=== PATIENT | male | born 1955 | race Two or more races ===

== ENCOUNTER 2024-04-24 10:37 | Emergency (ER) | payer MEDICARE, MEDICAID, SELFPAY ==
--- NOTE | 2024-04-24 10:53 | XR_ITS ---
Examination: PA lateral chest 2 views Technique: Upright PA lateral chest 2 views Exam date and time: April 24, 2024 1113 hrs. Indications: Coughing beginning one month ago. Findings: Mild prominence left ventricle No pneumonia or pulmonary edema Prominent osteopenia Impression: No pneumonia or pulmonary edema
--- NOTE | 2024-04-24 10:53 | PD.EDURI ---
Upper Respiratory Inf. RME/HPI General Chief Complaint: Skin/Abscess/Foreign Body Stated Complaint: Rash, SOB at night Time Seen by Provider: 04/24/24 10:55 Source: patient Arrival date/time: 04/24/24 10:37 68-year-old male with a history of hypertension presents to the emergency room with a chief complaint of difficulty breathing, coughing x 1 month. Patient states he recently arrived from [place] 3 days ago. Mode of arrival: ambulatory Limitations: no limitations Related Data Home Medications ?Medication ?Instructions ?Recorded ?Confirmed amlodipine 10 mg tablet 10 mg PO QDAY 07/03/21 07/04/21 lisinopril 20 mg tablet 20 mg PO QDAY 07/03/21 07/04/21 loratadine 10 mg tablet 10 mg PO QDAY 07/03/21 07/03/21 montelukast 10 mg tablet 10 mg PO QDAY 07/03/21 07/03/21 Previous Rx's ?Medication ?Instructions ?Recorded albuterol sulfate 2.5 mg/3 mL 2.5 mg (3 mL) inhalation Q4H PRN 06/11/20 (0.083 %) solution for nebulization shortness of breath or wheezing #90 mL albuterol sulfate 90 mcg/actuation 2 puff inhalation QID PRN 04/14/21 aerosol inhaler (ProAir HFA) shortness of breath or wheezing #8.5 grams prednisone 50 mg tablet 50 mg PO QDAY #5 tabs 03/09/22 ibuprofen 600 mg tablet 600 mg PO Q8H PRN pain #30 tabs 07/22/22 acetaminophen 325 mg capsule 650 mg (2 x 325 mg) PO QID PRN 04/24/24 fever or pain 7 days #30 caps albuterol sulfate 90 mcg/actuation 2 inh inhalation Q6H PRN shortness 04/24/24 breath activated powder inhaler of breath or wheezing #1 ea benzonatate 100 mg capsule 100 mg PO BID PRN cough #14 caps 04/24/24 Allergies Allergy/AdvReac Type Severity Reaction Status Date / Time No Known Allergies Allergy Verified 04/24/24 10:43 Review of Systems Review of Systems Systems Reviewed: All systems reviewed, normal except as documented Constitutional Constitutional: Reports system reviewed and no additional complaints, except as documented, Denies fatigue, Denies fever(s), Denies headache(s) and Denies weakness Eyes Eyes: Reports system reviewed and no additional complaints, except as documented, Denies blurry vision and Denies change in vision ENT Ears, Nose, Mouth, and Throat: Reports system reviewed and no additional complaints, except as documented, Denies otalgia, Denies headache(s), Denies nasal congestion, Denies throat swelling and Denies vertigo Cardiovascular Cardiovascular: Reports system reviewed and no additional complaints, except as documented, Denies chest pain, Reports dyspnea and Denies dyspnea on exertion Respiratory Respiratory: Reports chest congestion, Reports cough, Reports dyspnea, Denies dyspnea on exertion and Reports wheezing Gastrointestinal Gastrointestinal: Reports system reviewed and no additional complaints, except as documented, Denies abdominal pain, Denies cramping, Denies nausea and Denies vomiting Genitourinary Genitourinary: Reports system reviewed and no additional complaints, except as documented, Denies dysuria and Denies hematuria Musculoskeletal Musculoskeletal: Reports system reviewed and no additional complaints, except as documented and Denies back pain Integumentary/Breasts Skin/Breast: Reports system reviewed and no additional complaints, except as documented and Denies wounds Neurologic Neurologic: Reports system reviewed and no additional complaints, except as documented, Denies confusion, Denies headache(s), Denies lack of coordination, Denies vertigo and Denies weakness Psychiatric Psychiatric: Reports system reviewed and no additional complaints, except as documented, Denies anxiety, Denies confusion, Denies depression, Denies paranoia, Denies suicidal ideation and Denies tactile hallucinations Endocrine Endocrine: Reports system reviewed and no additional complaints, except as documented and Denies fatigue Hematologic/Lymphatic Hematologic/Lymphatic: Reports system reviewed and no additional complaints, except as documented and Denies lymphadenopathy Allergic/Immunologic Allergic/Immunologic: Reports system reviewed and no additional complaints, except as documented, Denies throat swelling, Denies urticaria and Reports wheezing Past Medical History Past Medical History NEUROLOGIC: Negative Neurological Disorders or Seizures CARDIAC: Positive Cardiac Disorders, Hypercholesterolemia and Hypertension; Negative Congestive Heart Failure RESPIRATORY: Positive Asthma; Negative Chronic Obstructive Pulmonary Disease (COPD) GASTROINTESTINAL: Negative Gastrointestinal Disorders or Hepatitis GENITOURINARY: Positive Genitourinary Disorders (Umbilical hernia); Negative Renal Disease MUSCULOSKELETAL: Negative Musculoskeletal Disorders ENDOCRINE: Negative Endocrine Disorders, Diabetes Mellitus Type 1 or Diabetes Mellitus Type 2 (Pre Diabetic not taking medicaion) HEMATOLOGIC: Negative Blood Disorders OTHER HISTORY: Negative Hospitalization, Shingles, Falls, Blood Transfusions, Anesthesia Reactions, Chemotherapy, Radiation Therapy, MRSA or Cancer Surgical History SURGICAL: Negative Cardiac Surgery, Endocrine Surgery or Abdominal Surgery Social History SMOKING STATUS: Former smoker SUBSTANCE USE: does not use ED Exam General Limitations: Present no limitations General appearance: Present alert and in no apparent distress Head Head exam: Present atraumatic Eye Eye exam: Present normal appearance, PERRL and EOMI ENT ENT exam: Present normal exam, normal oropharynx and mucous membranes moist Neck Neck exam: Present normal inspection, full ROM and trachea midline Chest Chest inspection: Present normal inspection and symmetric chest wall rise Respiratory Respiratory exam: Present normal lung sounds bilaterally and wheezes; Absent respiratory distress, stridor, accessory muscle use or prolonged expiratory phase Expanded Respiratory Exam Location: Left: wheezes, Right: wheezes and Upper: wheezes Cardiovascular Cardiovascular exam: Present regular rate, normal rhythm and normal heart sounds Abdominal Exam Abdominal exam: Present soft and normal bowel sounds Extremities Exam Extremities exam: Present normal inspection and full ROM Back Exam Back exam: Present normal inspection and full ROM Neurological Exam Neurological exam: Present alert, oriented X3 and CN II-XII intact Psychiatric Psychiatric exam: Present normal affect and normal mood Skin Skin exam: Present warm, dry, intact and normal color Course Quality Measures none Orders Category Date Time Status Bedside COVID-19 Antigen Test NOW Care 04/24/24 10:53 Active Bedside Influenza A&B Antigen Test NOW Care 04/24/24 10:53 Completed XR chest 2V Stat Exams 04/24/24 10:53 Completed Albuterol/Ipratr Rt Claudia [Duoneb Rt Claudia] Med 04/24/24 10:53 Discontinued 3 ml INH X1 ONE Dexamethasone Inj [Decadron Inj] Med 04/24/24 10:53 Discontinued 10 mg PO X1 ONE DiphenhydrAMINE [Benadryl] Med 04/24/24 10:53 Discontinued 25 mg PO X1 ONE Vital Signs Vital signs: Vital Signs Temperature 98.5 F 04/24/24 11:13 Pulse Rate 80 04/24/24 11:13 Respiratory Rate 17 04/24/24 11:13 Blood Pressure 120/76 04/24/24 11:13 Pulse Oximetry (%) 95 04/24/24 11:13 Oxygen Delivery Method Room Air 04/24/24 11:13 O2 saturation is within normal limits Upper Respiratory Infection MDM Narrative MDM Narrative:: 68-year-old male with a history of hypertension presents to the emergency room with a chief complaint of difficulty breathing, coughing x 1 month. Patient states he recently arrived from [place] 3 days ago. Patient is hemodynamically stable and in no apparent distress. Patient is not tachypneic, tachycardic, patient is afebrile and O2 saturation is 96% on room air Physical examination shows bilateral upper lobe wheezing. A DuoNeb breathing treatment and steroids were given to the patient the patient was reevaluated in 1 hour with significant improvement to his symptoms. Patient tested positive for influenza A and B Patient was discharged and educated to follow-up with his primary care provider and return to the emergency room for any evidence of worsening signs or symptoms Patient data External records reviewed:: [facility] previous records Clinical information provided by:: patient Social determinants that could affect healthcare access:: none Patient has the following chronic illnesses:: Hypertension How is presenting disease/condition affected by chronic disease/condition?: uneffected by Evaluation data The following diagnostics were reviewed and interpreted by me:: lab results and radiology exam(s) Lab and/or radiology exams considered but not ordered:: Labs and radiology exams considered and ordered Interpretation Summary: Chest x-ray-no pneumonic infiltrates Medications / Prescriptions Medications or Prescriptions considered but not ordered:: Medication given Medication administrations:: Medication Administration History Discontinued Medications Albuterol/Ipratropium (Albuterol/Ipratropium (Duoneb) Rt Claudia 3 Ml Nebu) 3 ml INH X1 ONE Stop: 04/24/24 10:54 Last Admin: 04/24/24 11:25 Dose: 3 ml Documented By: BJ Dexamethasone Sodium Phosphate (Dexamethasone Sod Phos Inj 10 Mg/Ml Vial) 10 mg PO X1 ONE Stop: 04/24/24 10:54 Last Admin: 04/24/24 11:05 Dose: 10 mg Documented By: BD Comments: GIVEN PO Diphenhydramine HCl (Diphenhydramine 25 Mg Capsule) 25 mg PO X1 ONE Stop: 04/24/24 10:54 Last Admin: 04/24/24 11:05 Dose: 25 mg Documented By: BD Medication given Consultations Consultation(s) initiated? (list below): No Diagnosis Upper Respiratory Differential Diagnosis: upper respiratory infection, viral infection, bronchitis, influenza and other (Community-acquired pneumonia) Most likely diagnosis given after review of the tests above:: Influenza A and B Admission Indicated Admission indicated?: not indicated Admission Request Was there a request for admission?: No Disposition Plan Disposition Plan: Discharge Discharge Attestation Discharge Attestation: The patient and all family members were given an opportunity to ask questions and understood the discharge instructions. Discharge instructions specifically effects, indications for sooner follow up or return to the emergency department, and the expected course of current diagnosis. Patient condition: Stable Discharge Plan Plan Patient Disposition: HOME (Self Care) Disposition Comment: Stable Prescriptions/Referrals Prescriptions/Med Rec: New acetaminophen 325 mg capsule 650 mg PO QID PRN (Reason: fever or pain) 7 Days Qty: 30 0RF albuterol sulfate 90 mcg/actuation aerosol powdr breath activated 2 inh inhalation Q6H PRN (Reason: shortness of breath or wheezing) Qty: 1 0RF benzonatate 100 mg capsule 100 mg PO BID PRN (Reason: cough) Qty: 14 0RF No Action albuterol sulfate 2.5 mg /3 mL (0.083 %) solution for nebulization 2.5 mg inhalation Q4H PRN (Reason: shortness of breath or wheezing) Qty: 90 0RF albuterol sulfate [ProAir HFA] 90 mcg/actuation HFA aerosol inhaler 2 puff inhalation QID PRN (Reason: shortness of breath or wheezing) Qty: 8.5 0RF lisinopril 20 mg Tablet 20 mg PO QDAY amlodipine 10 mg Tablet 10 mg PO QDAY montelukast 10 mg Tablet 10 mg PO QDAY loratadine 10 mg Tablet 10 mg PO QDAY prednisone 50 mg tablet 50 mg PO QDAY Qty: 5 0RF ibuprofen 600 mg tablet 600 mg PO Q8H PRN (Reason: pain) Qty: 30 0RF Referrals: No Primary/Family,Physician [Primary Care Provider] - In 1 week Problem List Clinical Impression: Influenza A, Influenza B Patient/Caregiver Discharge Instructions Education Materials: ED Influenza (Adult) Additional Instructions: Cristin un seguimiento con gilmore proveedor de atenci?n primaria en las pr?ximas 24 a 48 horas. Galdino positivo por gripe. El tratamiento para esto es el manejo de los s?ntomas. Contin?e tomando Tylenol e ibuprofeno para controlar la fiebre. Aumente gilmore ingesta de l?quidos orales. Si hay evidencia de signos o s?ntomas que empeoran, regrese a la noé de emergencias de inmediato. Print Language: Syriac Stand Alone Forms: Asiya Award Info., Patient Portal Info Letter PA/ENVIRONMENTAL DESIGNER Supervising Physician PA/ENVIRONMENTAL DESIGNER Supervising Physician: Dr. Naik
[2024-04-24] MEDS: DiphenhydrAMINE 25 MG CAPSULE PO (11:05)
[2024-04-24] MEDS: DEXAMETHASONE SOD PHOS INJ 10 MG/ML VIAL PO (11:05)
[2024-04-24 11:13] VITALS: BP 120/76; PULSE 80; RESP 17; TEMP 36.9; O2SAT 95; BMI 31.7
[2024-04-24] MEDS: ALBUTEROL/IPRATROPIUM (Duoneb) RT SOL 3 ML NEBU INH (11:25)
[2024-04-24 11:26] VITALS: PULSE 76; RESP 20; O2SAT 96
== END 2024-04-24 12:03 | disposition home or self-care (01) ==
PROVIDERS: Emergency Provider Emergency Medicine
DX: J10.1 Influenza due to other identified influenza virus with other respiratory manifestations (principal); I10 Essential (primary) hypertension; Z87.891 Personal history of nicotine dependence
CPT/HCPCS: 71046; 87400; 87811; 94640; 99283; A9270; J1100

== ENCOUNTER 2024-06-20 14:36 | Emergency (ER) | payer MEDICARE, MEDICAID, SELFPAY ==
[2024-06-20 14:52] VITALS: BP 108/68; PULSE 92; RESP 18; TEMP 37.4; O2SAT 90; BMI 31.3
--- NOTE | 2024-06-20 15:03 | XR_ITS ---
Examination: PA lateral chest 2 views TECHNIQUE: Upright PA lateral chest 2 views Examination time: June 20, 2024, 1629 hours Comparison April 24, 2024 INDICATIONS: Chest pain shortness of breath beginning 2 days ago. FINDINGS: Moderate hyperexpansion Pneumonia left base Mild prominence left ventricle No pulmonary edema IMPRESSION: Pneumonia left base
--- NOTE | 2024-06-20 15:08 | EDNOTE_ITS ---
<Statement entered by Carmen Camacho MD - 06/28/24 04:31> As co-signing physician, I was present and available for consult prn. I concur with the plan and care as documented by the midlevel provider. Upper Respiratory Inf. RME/HPI General Chief Complaint: Flu Like Symptoms Stated Complaint: COUGH, THROAT PAIN X3 DAYS Time Seen by Provider: 06/20/24 14:49 Arrival date/time: 06/20/24 14:36 This is a 68-year-old male that comes in with complaints of cough throat pain and difficulty breathing for the last 3 days. Patient secondary to allergies. Patient states the difficulty breathing got worse last night. Patient states he has a history of high blood pressure he was a previous smoker when he was younger and smoked for about 10 years. Related Data Home Medications ?Medication ?Instructions ?Recorded ?Confirmed amlodipine 10 mg tablet 10 mg PO QDAY 07/03/2107/04 lisinopril 20 mg tablet 20 mg PO QDAY 07/03/2107/04 loratadine 10 mg tablet 10 mg PO QDAY 07/03/2107/03 montelukast 10 mg tablet 10 mg PO QDAY 07/03/2107/03 Previous Rx's ?Medication ?Instructions ?Recorded albuterol sulfate 2.5 mg/3 mL 2.5 mg (3 mL) inhalation Q4H PRN 06/11/20 (0.083 %) solution for nebulization shortness of breat h or wheezing #90 mL albuterol sulfate 90 mcg/actuation 2 puff inhalation Q ID PRN 04/14/21 aerosol inhaler (ProAir HFA) shortness of breath or wh eezing #8.5 grams prednisone 50 mg tablet 50 mg PO QDAY #5 tabs ibuprofen 600 mg tablet 600 mg PO Q8H PRN pain #30 t abs 07/22/22 albuterol sulfate 90 mcg/actuation 2 inh inhalation Q6 H PRN shortness 04/24/24 breath activated powder inhaler of breath or wheezing #1 ea benzonatate 100 mg capsule 100 mg PO BID PRN cough #14 caps 04/24/24 albuterol sulfate 90 mcg/actuation 2 puff inhalation Q ID PRN 06/20/24 aerosol inhaler shortness of breath or wheez ing #8.5 grams azithromycin 250 mg tablet See Rx Instructions PO .COM PLEX #6 06/20/24 tabs prednisone 20 mg tablet 20 mg PO QDAY #5 tabs Allergies Allergy/AdvReac Type Severity Reaction Status Date / Time No Known Allergies Allergy Verified 04/24/24 10:43 Review of Systems Review of Systems Systems Reviewed: All systems reviewed, normal except as documented Past Medical History Past Medical History NEUROLOGIC: Negative Neurological Disorders or Seizures CARDIAC: Positive Cardiac Disorders, Hypercholesterolemia and Hypertension; Negative Congestive Heart Failure RESPIRATORY: Positive Asthma; Negative Chronic Obstructive Pulmonary Disease (COPD) GASTROINTESTINAL: Negative Gastrointestinal Disorders or Hepatitis GENITOURINARY: Positive Genitourinary Disorders (Umbilical hernia); Negative Renal Disease MUSCULOSKELETAL: Negative Musculoskeletal Disorders ENDOCRINE: Negative Endocrine Disorders, Diabetes Mellitus Type 1 or Diabetes Mellitus Type 2 (Pre Diabetic not taking medicaion) HEMATOLOGIC: Negative Blood Disorders OTHER HISTORY: Negative Hospitalization, Shingles, Falls, Blood Transfusions, Anesthesia Reactions, Chemotherapy, Radiation Therapy, MRSA or Cancer Surgical History SURGICAL: Negative Cardiac Surgery, Endocrine Surgery or Abdominal Surgery Social History SMOKING STATUS: Former smoker SUBSTANCE USE: does not use ED Exam General General appearance: Present alert and in no apparent distress Head Head exam: Present atraumatic Eye Eye exam: Present normal appearance, PERRL and EOMI ENT ENT exam: Present normal exam, normal oropharynx and mucous membranes moist Neck Neck exam: Present normal inspection, full ROM and trachea midline Chest Chest inspection: Present normal inspection and symmetric chest wall rise Respiratory Respiratory exam: Present other (wheezing throughout ) Cardiovascular Cardiovascular exam: Present regular rate, normal rhythm and normal heart sounds Abdominal Exam Abdominal exam: Present soft Extremities Exam Extremities exam: Present normal inspection and full ROM Back Exam Back exam: Present normal inspection and full ROM Neurological Exam Neurological exam: Present alert, oriented X3 and CN II-XII intact Psychiatric Psychiatric exam: Present normal affect and normal mood Skin Skin exam: Present warm, dry, intact and normal color Course Quality Measures none Orders Category Date Time Status Bedside COVID-19 Antigen Test NOW Care 06/20/24 15:08 Completed Bedside Influenza A&B Antigen Test NOW Care 06/20/24 15:08 Completed XR chest 2V Stat Exams 06/20/24 15:03 Completed Albuterol/Ipratr Rt Claudia [Duoneb Rt Claudia] Med 06/20/24 15:03 Discontinued 3 ml INH X1 ONE Albuterol/Ipratr Rt Claudia [Duoneb Rt Claudia] Med 06/20/24 15:46 Discontinued 3 ml INH X1 ONE cefTRIAXone [Rocephin] 1,000 mg Med 06/20/24 16:59 Discontinued Lidocaine 1% 20 ml [Xylocaine 1% 20 ML] 2.1 ml IM X1 predniSONE Med 06/20/24 16:58 Discontinued 40 mg PO X1 ONE Vital Signs Vital signs: Vital Signs Temperature 99.3 F 06/20/24 14:52 Pulse Rate 92 06/20/24 14:52 Respiratory Rate 18 06/20/24 14:52 Blood Pressure 108/68 06/20/24 14:52 Pulse Oximetry (%) 90 L 06/20/24 14:52 Oxygen Delivery Method Room Air 06/20/24 14:52 Upper Respiratory Infection MDM Narrative MDM Narrative:: Patient had significant wheezing upon arrival. I had RT gave patient 2 breathing treatments. Patient's breathing significantly improved. Will give patient a dose of steroids. Patient was a smoker and smoked for about 10 years about a pack a day. Will treat for COPD exacerbation. Will give patient a dose of Rocephin. I will send patient home with Zithromax and steroids. I will also send patient home with an inhaler. Patient told to follow-up with primary provider in 1 to 2 days. Come back to the emergency room if symptoms change or worsen. chest x ray: FINDINGS: Moderate hyperexpansion Pneumonia left base Mild prominence left ventricle No pulmonary edema IMPRESSION: Pneumonia left base Patient data External records reviewed:: [facility] previous records Clinical information provided by:: patient Social determinants that could affect healthcare access:: none Patient has the following chronic illnesses:: see hpi How is presenting disease/condition affected by chronic disease/condition?: exacerbated by Evaluation data The following diagnostics were reviewed and interpreted by me:: lab results and radiology exam(s) Lab and/or radiology exams considered but not ordered:: none Interpretation Summary: see bote Medications / Prescriptions Medications or Prescriptions considered but not ordered:: none Medication administrations:: Medication Administration History Discontinued Medications Albuterol/Ipratropium (Albuterol/Ipratropium (Duoneb) Rt Claudia 3 Ml Nebu) 3 ml INH X1 ONE Stop: 06/20/24 15:04 Last Admin: 06/20/24 15:37 Dose: 3 ml Documented By: NITESH Albuterol/Ipratropium (Albuterol/Ipratropium (Duoneb) Rt Claudia 3 Ml Nebu) 3 ml INH X1 ONE Stop: 06/20/24 15:47 Last Admin: 06/20/24 15:52 Dose: 3 ml Documented By: NITESH Ceftriaxone Sodium 1,000 mg/ (Lidocaine HCl 2.1 ml) 0 mg IM X1 ONE Stop: 06/20/24 17:00 Last Admin: 06/20/24 17:32 Dose: 1,000 mg Documented By: LANA Comments: 2.1 ml lido Prednisone (Prednisone 20 Mg Tablet) 40 mg PO X1 ONE Stop: 06/20/24 16:59 Last Admin: 06/20/24 17:32 Dose: 40 mg Documented By: LANA see mar Consultations Consultation(s) initiated? (list below): No Diagnosis Upper Respiratory Differential Diagnosis: upper respiratory infection, viral infection, bronchitis, influenza and other (pneumonia) Most likely diagnosis given after review of the tests above:: pnuemonia Admission Indicated Admission indicated?: not indicated Admission Request Was there a request for admission?: No Disposition Plan Disposition Plan: Discharge Discharge Attestation Discharge Attestation: The patient and all family members were given an opportunity to ask questions and understood the discharge instructions. Discharge instructions specifically effects, indications for sooner follow up or return to the emergency department, and the expected course of current diagnosis. Patient condition: Stable Discharge Plan Plan Patient Disposition: HOME (Self Care) Patient condition on transfer: Stable Prescriptions/Referrals Prescriptions/Med Rec: New albuterol sulfate 90 mcg/actuation HFA aerosol inhaler 2 puff inhalation QID PRN (Reason: shortness of breath or wheezing) Qty: 8.5 0RF azithromycin 250 mg tablet See Rx Instructions .ROUTE .COMPLEX Qty: 6 0RF Rx Instructions: For 250 mg dose pack: take 500 mg today (day 1), then 250 mg for 4 days (days 2-5) prednisone 20 mg tablet 20 mg PO QDAY Qty: 5 0RF No Action albuterol sulfate 2.5 mg /3 mL (0.083 %) solution for nebulization 2.5 mg inhalation Q4H PRN (Reason: shortness of breath or wheezing) Qty: 90 0 RF albuterol sulfate [ProAir HFA] 90 mcg/actuation HFA aerosol inhaler 2 puff inhalation QID PRN (Reason: shortness of breath or wheezing) Qty: 8.5 0RF lisinopril 20 mg Tablet 20 mg PO QDAY amlodipine 10 mg Tablet 10 mg PO QDAY montelukast 10 mg Tablet 10 mg PO QDAY loratadine 10 mg Tablet 10 mg PO QDAY prednisone 50 mg tablet 50 mg PO QDAY Qty: 5 0RF ibuprofen 600 mg tablet 600 mg PO Q8H PRN (Reason: pain) Qty: 30 0RF albuterol sulfate 90 mcg/actuation aerosol powdr breath activated 2 inh inhalation Q6H PRN (Reason: shortness of breath or wheezing) Qty: 1 0RF benzonatate 100 mg capsule 100 mg PO BID PRN (Reason: cough) Qty: 14 0RF Referrals: Pavan Thornton MD [Primary Care Provider] - In 1 week Problem List Clinical Impression: COPD exacerbation, Pneumonia Patient/Caregiver Discharge Instructions Discharge Activity: activity as tolerated Education Materials: ED COPD Flare, ED Pneumonia (Adult) Additional Instructions: Take medications as prescribed. Follow-up with primary provider in 1 to 2 days. Come back to the emergency room if symptoms change or worsen. Print Language: Korean Stand Alone Forms: Asiya Award Info., Patient Portal Info Letter PA/FABIÁN Supervising Physician PA/FABIÁN Supervising Physician: ryan
[2024-06-20 15:37] VITALS: PULSE 85; RESP 18; O2SAT 95
[2024-06-20] MEDS: ALBUTEROL/IPRATROPIUM (Duoneb) RT SOL 3 ML NEBU INH ×2 (15:37→15:52)
[2024-06-20 15:52] VITALS: PULSE 100; RESP 18; O2SAT 93
[2024-06-20] MEDS: predniSONE 20 MG TABLET 40 MG PO (17:32)
[2024-06-20] MEDS: cefTRIAXone 1,000 MG, LIDOCAINE 1% 20 ML 2.1 ML IM (17:32)
== END 2024-06-21 02:13 | disposition home or self-care (01) ==
PROVIDERS: Emergency Provider Emergency Medicine; PCP Family Medicine
DX: J44.1 Chronic obstructive pulmonary disease with (acute) exacerbation (principal); J44.0 Chronic obstructive pulmonary disease with (acute) lower respiratory infection; J18.9 Pneumonia, unspecified organism; E78.00 Pure hypercholesterolemia, unspecified; I10 Essential (primary) hypertension; Z87.891 Personal history of nicotine dependence
CPT/HCPCS: 71046; 94640; 99283; A9270; J0696; J3490; J7512

== ENCOUNTER 2024-11-25 16:34 | Emergency (ER) | payer MEDICARE, MEDICAID, SELFPAY ==
[2024-11-25 17:01] VITALS: BP 135/79; PULSE 85; RESP 18; TEMP 37.1; O2SAT 95; BMI 33.2
--- NOTE | 2024-11-25 17:01 | PD.EDANIML ---
ED Animal Bite RME/HPI General Chief Complaint: Animal Bite Stated Complaint: DOG BITE Time Seen by Provider: 11/25/24 17:00 Arrival date/time: 11/25/24 16:34 69-year-old male presents to the emergency department today complains of dog bite to left leg patient was had a dog bite to the left leg 9 days ago patient reports he went to the doctor yesterday given course of antibiotics patient requesting an injection of antibiotics at this time Limitations: no limitations Related Data Home Medications ?Medication ?Instructions ?Recorded ?Confirmed amlodipine 10 mg tablet 10 mg PO QDAY 07/03/21 07/04/21 lisinopril 20 mg tablet 20 mg PO QDAY 07/03/21 07/04/21 loratadine 10 mg tablet 10 mg PO QDAY 07/03/21 07/03/21 montelukast 10 mg tablet 10 mg PO QDAY 07/03/21 07/03/21 Previous Rx's ?Medication ?Instructions ?Recorded albuterol sulfate 2.5 mg/3 mL 2.5 mg (3 mL) inhalation Q4H PRN 06/11/20 (0.083 %) solution for nebulization shortness of breath or wheezing #90 mL albuterol sulfate 90 mcg/actuation 2 puff inhalation QID PRN 04/14/21 aerosol inhaler (ProAir HFA) shortness of breath or wheezing #8.5 grams prednisone 50 mg tablet 50 mg PO QDAY #5 tabs 03/09/22 ibuprofen 600 mg tablet 600 mg PO Q8H PRN pain #30 tabs 07/22/22 albuterol sulfate 90 mcg/actuation 2 inh inhalation Q6H PRN shortness 04/24/24 breath activated powder inhaler of breath or wheezing #1 ea benzonatate 100 mg capsule 100 mg PO BID PRN cough #14 caps 04/24/24 albuterol sulfate 90 mcg/actuation 2 puff inhalation QID PRN 06/20/24 aerosol inhaler shortness of breath or wheezing #8.5 grams azithromycin 250 mg tablet See Rx Instructions PO .COMPLEX #6 06/20/24 tabs prednisone 20 mg tablet 20 mg PO QDAY #5 tabs 06/20/24 Allergies Allergy/AdvReac Type Severity Reaction Status Date / Time No Known Allergies Allergy Verified 04/24/24 10:43 Review of Systems Review of Systems Systems Reviewed: All systems reviewed, normal except as documented Constitutional Constitutional: Reports system reviewed and no additional complaints, except as documented, Denies fever(s) and Denies headache(s) Eyes Eyes: Reports system reviewed and no additional complaints, except as documented and Denies blurry vision ENT Ears, Nose, Mouth, and Throat: Reports system reviewed and no additional complaints, except as documented, Denies headache(s), Denies nasal congestion and Denies nasal discharge Cardiovascular Cardiovascular: Reports system reviewed and no additional complaints, except as documented, Denies chest pain and Denies dyspnea Respiratory Respiratory: Reports system reviewed and no additional complaints, except as documented, Denies chest congestion, Denies cough and Denies dyspnea Gastrointestinal Gastrointestinal: Reports system reviewed and no additional complaints, except as documented and Denies abdominal pain Integumentary/Breasts Skin/Breast: Reports system reviewed and no additional complaints, except as documented, Denies rash and Reports wounds (Dog bite left leg) Neurologic Neurologic: Reports system reviewed and no additional complaints, except as documented, Reports as per HPI and Denies headache(s) Past Medical History Past Medical History NEUROLOGIC: Negative Neurological Disorders or Seizures CARDIAC: Positive Cardiac Disorders, Hypercholesterolemia and Hypertension; Negative Congestive Heart Failure RESPIRATORY: Positive Asthma; Negative Chronic Obstructive Pulmonary Disease (COPD) GASTROINTESTINAL: Negative Gastrointestinal Disorders or Hepatitis GENITOURINARY: Positive Genitourinary Disorders (Umbilical hernia); Negative Renal Disease MUSCULOSKELETAL: Negative Musculoskeletal Disorders ENDOCRINE: Negative Endocrine Disorders, Diabetes Mellitus Type 1 or Diabetes Mellitus Type 2 (Pre Diabetic not taking medicaion) HEMATOLOGIC: Negative Blood Disorders OTHER HISTORY: Negative Hospitalization, Shingles, Falls, Blood Transfusions, Anesthesia Reactions, Chemotherapy, Radiation Therapy, MRSA or Cancer Surgical History SURGICAL: Negative Cardiac Surgery, Endocrine Surgery or Abdominal Surgery Social History SMOKING STATUS: Never smoker SUBSTANCE USE: does not use ED Exam General Limitations: Present no limitations General appearance: Present alert and in no apparent distress Head Head exam: Present atraumatic Eye Eye exam: Present normal appearance, PERRL and EOMI ENT ENT exam: Present normal exam, normal oropharynx and mucous membranes moist Neck Neck exam: Present normal inspection, full ROM and trachea midline Chest Chest inspection: Present normal inspection and symmetric chest wall rise Respiratory Respiratory exam: Present normal lung sounds bilaterally Cardiovascular Cardiovascular exam: Present regular rate, normal rhythm and normal heart sounds Abdominal Exam Abdominal exam: Present soft and normal bowel sounds Extremities Exam Extremities exam: Present normal inspection and full ROM Back Exam Back exam: Present normal inspection and full ROM Neurological Exam Neurological exam: Present alert, oriented X3 and CN II-XII intact Psychiatric Psychiatric exam: Present normal affect and normal mood Skin Skin exam: Present warm, dry and other (Dog bite left leg) Course Quality Measures none Orders Category Date Time Status Lidocaine 1% 20 ml [Xylocaine 1% 20 ML] Med 11/25/24 17:01 Discontinued 2.1 ml INFL X1 ONE cefTRIAXone [Rocephin] Med 11/25/24 17:01 Discontinued 1,000 mg IM X1 ONE Vital Signs Vital signs: Vital Signs Temperature 98.7 F 11/25/24 17:01 Pulse Rate 85 11/25/24 17:01 Respiratory Rate 18 11/25/24 17:01 Blood Pressure 135/79 H 11/25/24 17:01 Pulse Oximetry (%) 95 11/25/24 17:01 Oxygen Delivery Method Room Air 11/25/24 17:01 O2 saturation 95% on room air within normal limits Animal Bite MDM Narrative MDM Narrative:: 69-year-old male presents to the emergency department today complains of dog bite to left leg patient was had a dog bite to the left leg 9 days ago patient reports he went to the doctor yesterday given course of antibiotics patient requesting an injection of antibiotics at this time On exam patient has 3 small puncture wounds to the left lower extremity mild erythema no definite abscess noted no circumferential redness Patient was given Rocephin here instructed return tomorrow for repeat Rocephin injection Patient data External records reviewed:: [facility] previous records Clinical information provided by:: patient Social determinants that could affect healthcare access:: none Patient has the following chronic illnesses:: See history How is presenting disease/condition affected by chronic disease/condition?: uneffected by Evaluation data The following diagnostics were reviewed and interpreted by me:: other (specify) (N/A) Lab and/or radiology exams considered but not ordered:: Considered not ordered Interpretation Summary: N/A Medications / Prescriptions Medications or Prescriptions considered but not ordered:: Given Medication administrations:: Medication Administration History Discontinued Medications Ceftriaxone Sodium (Ceftriaxone Sod Inj 1,000 Mg Vial) 1,000 mg IM X1 ONE Stop: 11/25/24 17:02 Last Admin: 11/25/24 17:18 Dose: 1,000 mg Documented By: ROHIT Lidocaine HCl (Lidocaine Hcl 1% 20 Ml Vial) 2.1 ml INFL X1 ONE Stop: 11/25/24 17:02 Last Admin: 11/25/24 17:18 Dose: 2.1 ml Documented By: ROHIT Given Consultations Consultation(s) initiated? (list below): No Diagnosis Differential diagnosis animal bite: bite by animal and dog bite Most likely diagnosis given after review of the tests above:: Dog bite Admission Indicated Admission indicated?: not indicated Admission Request Was there a request for admission?: No Disposition Plan Disposition Plan: Discharge Discharge Attestation Discharge Attestation: The patient and all family members were given an opportunity to ask questions and understood the discharge instructions. Discharge instructions specifically effects, indications for sooner follow up or return to the emergency department, and the expected course of current diagnosis. Patient condition: Stable Discharge Plan Plan Patient Disposition: HOME (Self Care) Discharge Disposition comment: Stable Prescriptions/Referrals Prescriptions/Med Rec: No Action albuterol sulfate 2.5 mg /3 mL (0.083 %) solution for nebulization 2.5 mg inhalation Q4H PRN (Reason: shortness of breath or wheezing) Qty: 90 0RF albuterol sulfate [ProAir HFA] 90 mcg/actuation HFA aerosol inhaler 2 puff inhalation QID PRN (Reason: shortness of breath or wheezing) Qty: 8.5 0RF lisinopril 20 mg Tablet 20 mg PO QDAY amlodipine 10 mg Tablet 10 mg PO QDAY montelukast 10 mg Tablet 10 mg PO QDAY loratadine 10 mg Tablet 10 mg PO QDAY prednisone 50 mg tablet 50 mg PO QDAY Qty: 5 0RF albuterol sulfate 90 mcg/actuation HFA aerosol inhaler 2 puff inhalation QID PRN (Reason: shortness of breath or wheezing) Qty: 8.5 0RF azithromycin 250 mg tablet See Rx Instructions .ROUTE .COMPLEX Qty: 6 0RF Rx Instructions: For 250 mg dose pack: take 500 mg today (day 1), then 250 mg for 4 days (days 2-5) prednisone 20 mg tablet 20 mg PO QDAY Qty: 5 0RF ibuprofen 600 mg tablet 600 mg PO Q8H PRN (Reason: pain) Qty: 30 0RF albuterol sulfate 90 mcg/actuation aerosol powdr breath activated 2 inh inhalation Q6H PRN (Reason: shortness of breath or wheezing) Qty: 1 0RF benzonatate 100 mg capsule 100 mg PO BID PRN (Reason: cough) Qty: 14 0RF Problem List Clinical Impression: Dog bite of left lower leg Patient/Caregiver Discharge Instructions Education Materials: ED Dog Bite Additional Instructions: Please return tomorrow for repeat injection of Rocephin worsening symptoms return immediately Print Language: Citizen Of [place] Stand Alone Forms: Asiya Award Info., Patient Portal Info Letter PA/SECURITY SYSTEMS INTEGRATOR Supervising Physician PA/SECURITY SYSTEMS INTEGRATOR Supervising Physician: dr silver
[2024-11-25] MEDS: LIDOCAINE HCL 1% 20 ML VIAL 2.1 ML INFL (17:18)
[2024-11-25] MEDS: cefTRIAXone SOD INJ 1,000 MG VIAL 1000 MG IM (17:18)
== END 2024-11-25 18:07 | disposition home or self-care (01) ==
LOC: SERX 17:26
PROVIDERS: Emergency Provider Family Medicine; PCP Family Medicine
DX: S81.852A Open bite, left lower leg, initial encounter (principal); W54.0XXA Bitten by dog, initial encounter
CPT/HCPCS: 96372; 99283; J0696; J3490

== ENCOUNTER 2024-11-26 11:31 | Emergency (ER) | payer MEDICARE, MEDICAID, SELFPAY ==
--- NOTE | 2024-11-26 11:41 | EDNOTE_ITS ---
ED General RME/HPI General Chief complaint: General Adult/Misc Complain Stated complaint: HERE FOR 2ND SHOT Time Seen by Provider: 11/26/24 11:35 Arrival date/time: 11/26/24 11:31 69-year-old male presents to department today with patient was seen by myself yesterday patient had dog bite recently patient was given an injection of Rocephin yesterday was instructed return for reevaluation and repeat injection today Limitations: no limitations Related Data Home Medications ?Medication ?Instructions ?Recorded ?Confirmed amlodipine 10 mg tablet 10 mg PO QDAY 07/03/2107/04 lisinopril 20 mg tablet 20 mg PO QDAY 07/03/2107/04 loratadine 10 mg tablet 10 mg PO QDAY 07/03/2107/03 montelukast 10 mg tablet 10 mg PO QDAY 07/03/2107/03 Previous Rx's ?Medication ?Instructions ?Recorded albuterol sulfate 2.5 mg/3 mL 2.5 mg (3 mL) inhalation Q4H PRN 06/11/20 (0.083 %) solution for nebulization shortness of breat h or wheezing #90 mL albuterol sulfate 90 mcg/actuation 2 puff inhalation Q ID PRN 04/14/21 aerosol inhaler (ProAir HFA) shortness of breath or wh eezing #8.5 grams prednisone 50 mg tablet 50 mg PO QDAY #5 tabs ibuprofen 600 mg tablet 600 mg PO Q8H PRN pain #30 t abs 07/22/22 albuterol sulfate 90 mcg/actuation 2 inh inhalation Q6 H PRN shortness 04/24/24 breath activated powder inhaler of breath or wheezing #1 ea benzonatate 100 mg capsule 100 mg PO BID PRN cough #14 caps 04/24/24 albuterol sulfate 90 mcg/actuation 2 puff inhalation Q ID PRN 06/20/24 aerosol inhaler shortness of breath or wheez ing #8.5 grams azithromycin 250 mg tablet See Rx Instructions PO .COM PLEX #6 06/20/24 tabs prednisone 20 mg tablet 20 mg PO QDAY #5 tabs Allergies Allergy/AdvReac Type Severity Reaction Status Date / Time No Known Allergies Allergy Verified 11/26/24 11:34 Review of Systems Review of Systems Systems Reviewed: All systems reviewed, normal except as documented Constitutional Constitutional: Reports system reviewed and no additional complaints, except as documented, Denies fever(s) and Denies headache(s) Eyes Eyes: Reports system reviewed and no additional complaints, except as documented and Denies blurry vision ENT Ears, Nose, Mouth, and Throat: Reports system reviewed and no additional complaints, except as documented, Denies headache(s), Denies nasal congestion and Denies nasal discharge Cardiovascular Cardiovascular: Reports system reviewed and no additional complaints, except as documented, Denies chest pain and Denies dyspnea Respiratory Respiratory: Reports system reviewed and no additional complaints, except as documented, Denies chest congestion, Denies cough and Denies dyspnea Gastrointestinal Gastrointestinal: Reports system reviewed and no additional complaints, except as documented and Denies abdominal pain Integumentary/Breasts Skin/Breast: Reports system reviewed and no additional complaints, except as documented, Denies rash and Reports wounds (Small puncture wounds left lower leg) Neurologic Neurologic: Reports system reviewed and no additional complaints, except as documented, Reports as per HPI and Denies headache(s) Past Medical History Past Medical History NEUROLOGIC: Negative Neurological Disorders or Seizures CARDIAC: Positive Cardiac Disorders, Hypercholesterolemia and Hypertension; Negative Congestive Heart Failure RESPIRATORY: Positive Asthma; Negative Chronic Obstructive Pulmonary Disease (COPD) GASTROINTESTINAL: Negative Gastrointestinal Disorders or Hepatitis GENITOURINARY: Positive Genitourinary Disorders (Umbilical hernia); Negative Renal Disease MUSCULOSKELETAL: Negative Musculoskeletal Disorders ENDOCRINE: Negative Endocrine Disorders, Diabetes Mellitus Type 1 or Diabetes Mellitus Type 2 (Pre Diabetic not taking medicaion) HEMATOLOGIC: Negative Blood Disorders OTHER HISTORY: Negative Hospitalization, Shingles, Falls, Blood Transfusions, Anesthesia Reactions, Chemotherapy, Radiation Therapy, MRSA or Cancer Surgical History SURGICAL: Negative Cardiac Surgery, Endocrine Surgery or Abdominal Surgery Social History SMOKING STATUS: Never smoker SUBSTANCE USE: does not use ED Exam General Limitations: Present no limitations General appearance: Present alert and in no apparent distress Head Head exam: Present atraumatic Eye Eye exam: Present normal appearance, PERRL and EOMI ENT ENT exam: Present normal exam, normal oropharynx and mucous membranes moist Neck Neck exam: Present normal inspection, full ROM and trachea midline Chest Chest inspection: Present normal inspection and symmetric chest wall rise Respiratory Respiratory exam: Present normal lung sounds bilaterally Cardiovascular Cardiovascular exam: Present regular rate, normal rhythm and normal heart sounds Abdominal Exam Abdominal exam: Present soft and normal bowel sounds Extremities Exam Extremities exam: Present full ROM, tenderness and normal capillary refill; Absent joint swelling Back Exam Back exam: Present normal inspection and full ROM Neurological Exam Neurological exam: Present alert, oriented X3 and CN II-XII intact Psychiatric Psychiatric exam: Present normal affect and normal mood Skin Skin exam: Present warm, dry and other (Dog bite left lower extremity) Course Quality Measures none Orders Category Date Time Status Lidocaine 1% 20 ml [Xylocaine 1% 20 ML] Med 11/26/24 11:41 Discontinued 2.1 ml INFL X1 ONE cefTRIAXone [Rocephin] Med 11/26/24 11:41 Discontinued 1,000 mg IM X1 ONE Vital Signs Vital signs: Vital Signs Temperature 98.2 F 11/26/24 11:43 Pulse Rate 69 11/26/24 11:43 Respiratory Rate 18 11/26/24 11:43 Blood Pressure 129/77 11/26/24 11:43 Pulse Oximetry (%) 98 11/26/24 11:43 Oxygen Delivery Method Room Air 11/26/24 11:43 O2 saturation 98% room air within normal limits Discharge Plan Plan Patient Disposition: HOME (Self Care) Discharge Disposition comment: Stable Prescriptions/Referrals Prescriptions/Med Rec: No Action albuterol sulfate 2.5 mg /3 mL (0.083 %) solution for nebulization 2.5 mg inhalation Q4H PRN (Reason: shortness of breath or wheezing) Qty: 90 0RF albuterol sulfate [ProAir HFA] 90 mcg/actuation HFA aerosol inhaler 2 puff inhalation QID PRN (Reason: shortness of breath or wheezing) Qty: 8.5 0RF lisinopril 20 mg Tablet 20 mg PO QDAY amlodipine 10 mg Tablet 10 mg PO QDAY montelukast 10 mg Tablet 10 mg PO QDAY loratadine 10 mg Tablet 10 mg PO QDAY prednisone 50 mg tablet 50 mg PO QDAY Qty: 5 0RF albuterol sulfate 90 mcg/actuation HFA aerosol inhaler 2 puff inhalation QID PRN (Reason: shortness of breath or wheezing) Qty: 8.5 0RF azithromycin 250 mg tablet See Rx Instructions .ROUTE .COMPLEX Qty: 6 0RF Rx Instructions: For 250 mg dose pack: take 500 mg today (day 1), then 250 mg for 4 days (days 2-5) prednisone 20 mg tablet 20 mg PO QDAY Qty: 5 0RF ibuprofen 600 mg tablet 600 mg PO Q8H PRN (Reason: pain) Qty: 30 0RF albuterol sulfate 90 mcg/actuation aerosol powdr breath activated 2 inh inhalation Q6H PRN (Reason: shortness of breath or wheezing) Qty: 1 0RF benzonatate 100 mg capsule 100 mg PO BID PRN (Reason: cough) Qty: 14 0RF Problem List Clinical Impression: Dog bite of left lower leg Patient/Caregiver Discharge Instructions Education Materials: ED Dog Bite Additional Instructions: Please take your antibiotics as discussed worsening symptoms return immediately Print Language: [place] Stand Alone Forms: Asiya Award Info., Patient Portal Info Letter PA/SALES SERVICE REPRESENTATIVE Supervising Physician PA/SALES SERVICE REPRESENTATIVE Supervising Physician: Dr. silver MDM Narrative MDM hospital course (for use when minimal MDM required): 69-year-old male presents to department today with patient was seen by myself yesterday patient had dog bite recently patient was given an injection of Rocephin yesterday was instructed return for reevaluation and repeat injection today On exam patient well-appearing patient does not appear ill or toxic acute distress Patient given Rocephin injection Symptoms appear to be better than yesterday and less erythema with just small puncture wounds. Patient instructed to continue taking his antibiotics at home for worsening symptoms return immediately Clinical Information Provided by: patient Medical Records reviewed [facility] Meds/Rx considered, not ordered describe: Given Labs/Rad/Tests considered, not ordered None Chronic Illness/Social Conditions which may negatively complicate care or outcome(s)-explain: None or not applicable EKG EKG not done Labs Labs: none Imaging Imaging interpretation: none Medication Administration(s) Medication Administration History Discontinued Medications Ceftriaxone Sodium (Ceftriaxone Sod Inj 1,000 Mg Vial) 1,000 mg IM X1 ONE Stop: 11/26/24 11:42 Last Admin: 11/26/24 11:53 Dose: 1,000 mg Documented By: ROHIT Lidocaine HCl (Lidocaine Hcl 1% 20 Ml Vial) 2.1 ml INFL X1 ONE Stop: 11/26/24 11:42 Last Admin: 11/26/24 11:53 Dose: 2.1 ml Documented By: ROHIT Given Diagnosis Differential Diagnosis ED Complaint MDM: Dog bite, abscess, cellulitis
[2024-11-26 11:43] VITALS: BP 129/77; PULSE 69; RESP 18; TEMP 36.8; O2SAT 98
[2024-11-26] MEDS: cefTRIAXone SOD INJ 1,000 MG VIAL 1000 MG IM (11:53)
[2024-11-26] MEDS: LIDOCAINE HCL 1% 20 ML VIAL 2.1 ML INFL (11:53)
== END 2024-11-26 12:24 | disposition home or self-care (01) ==
LOC: SERX 12:06
PROVIDERS: Emergency Provider Family Medicine
DX: S81.852D Open bite, left lower leg, subsequent encounter (principal); W54.0XXD Bitten by dog, subsequent encounter
CPT/HCPCS: 96372; 99281; 99283; J0696; J3490

== ENCOUNTER 2025-01-08 12:49 | Emergency (ER) | payer MEDICARE, MEDICAID, SELFPAY ==
--- NOTE | 2025-01-08 13:02 | EDNOTE_ITS ---
ED Wound/Laceration-RME/HPI General Chief Complaint: Wound/Laceration Stated Complaint: DOG BITE X1 MONTH INFECTED WOUND Time Seen by Provider: 01/08/25 12:53 Arrival date/time: 01/08/25 12:49 RME / HPI RME / HPI narrative: 69-year-old male, last tdap unknown, with past ministry of hypertension, high cholesterol, asthma who presents to the ER complaining of infected dog bite x 1 month. Patient was initially seen here at onset of symptoms given ceftriaxone x 2 days and a course of antibiotics which he was compliant with and his redness completely improved he even saw his PCP after his 2 ER visits at the [facility] and was advised to just continue wound care about 3 weeks ago. However 2 weeks ago redness started again and now he has increased pain. Denies fever, N/V, numbness, tingling, weakness. Related Data Home Medications ?Medication ?Instructions ?Recorded ?Confirmed amlodipine 10 mg tablet 10 mg PO QDAY 07/03/2107/04 lisinopril 20 mg tablet 20 mg PO QDAY 07/03/2107/04 loratadine 10 mg tablet 10 mg PO QDAY 07/03/2107/03 montelukast 10 mg tablet 10 mg PO QDAY 07/03/2107/03 Previous Rx's ?Medication ?Instructions ?Recorded albuterol sulfate 2.5 mg/3 mL 2.5 mg (3 mL) inhalation Q4H PRN 06/11/20 (0.083 %) solution for nebulization shortness of breat h or wheezing #90 mL albuterol sulfate 90 mcg/actuation 2 puff inhalation Q ID PRN 04/14/21 aerosol inhaler (ProAir HFA) shortness of breath or wh eezing #8.5 grams prednisone 50 mg tablet 50 mg PO QDAY #5 tabs ibuprofen 600 mg tablet 600 mg PO Q8H PRN pain #30 t abs 07/22/22 albuterol sulfate 90 mcg/actuation 2 inh inhalation Q6 H PRN shortness 04/24/24 breath activated powder inhaler of breath or wheezing #1 ea benzonatate 100 mg capsule 100 mg PO BID PRN cough #14 caps 04/24/24 albuterol sulfate 90 mcg/actuation 2 puff inhalation Q ID PRN 06/20/24 aerosol inhaler shortness of breath or wheez ing #8.5 grams azithromycin 250 mg tablet See Rx Instructions PO .COM PLEX #6 06/20/24 tabs prednisone 20 mg tablet 20 mg PO QDAY #5 tabs amoxicillin 875 mg-potassium 1 tab PO Q12H #20 tabs clavulanate 125 mg tablet Allergies Allergy/AdvReac Type Severity Reaction Status Date / Time No Known Allergies Allergy Verified 01/08/25 12:51 Past Medical History Past Medical History NEUROLOGIC: Negative Neurological Disorders or Seizures CARDIAC: Positive Cardiac Disorders, Hypercholesterolemia and Hypertension; Negative Congestive Heart Failure RESPIRATORY: Positive Asthma; Negative Chronic Obstructive Pulmonary Disease (COPD) GASTROINTESTINAL: Negative Gastrointestinal Disorders or Hepatitis GENITOURINARY: Positive Genitourinary Disorders (Umbilical hernia); Negative Renal Disease MUSCULOSKELETAL: Negative Musculoskeletal Disorders ENDOCRINE: Negative Endocrine Disorders, Diabetes Mellitus Type 1 or Diabetes Mellitus Type 2 (Pre Diabetic not taking medicaion) HEMATOLOGIC: Negative Blood Disorders OTHER HISTORY: Negative Hospitalization, Shingles, Falls, Blood Transfusions, Anesthesia Reactions, Chemotherapy, Radiation Therapy, MRSA or Cancer Surgical History SURGICAL: Negative Cardiac Surgery, Endocrine Surgery or Abdominal Surgery Social History SMOKING STATUS: Never smoker SUBSTANCE USE: does not use ED Exam Narrative Physical exam: Constitutional: Vital Signs Reviewed. Well appearing. No acute distress. Not toxic appearing. Head: Normocephalic, atraumatic. Eyes: Conjunctiva clear. ENT: Mucous membranes moist. Neck: Trachea midline. Normal range of motion. No nuchal rigidity. Respiratory: Normal effort. No respiratory distress or accessory muscle use. Neuro: Alert and oriented. Speech normal. No focal gross motor or sensory deficits observed. Skin: Warm, dry, normal color. Psych: Pleasant. Normal affect. Cooperative. Left lower extremity: Three 2 cm's diameter wounds which extends to the subcutaneous with yellow exudate and erythematous granulation tissue are located just proximal to his ankle and adjacent to each of these wounds is erythema, induration, warmth, tenderness to palpation which extend about another 2 cm beyond the wounds. Negative crepitus. Compartments remain soft. Full range of motion of left ankle which is nonirritable and erythema does not extend to this joint. Dorsalis pedis pulse 2+ regular rate and rhythm. Wounds do not probe to bone with Q-tip. Course Quality Measures none Orders Category Date Time Status US venous duplex LE LT Stat Exams 01/08/25 13:43 Completed XR tibia fibula LT 2V Stat Exams 01/08/25 13:43 Completed Abscess Culture and Gram Stain Stat Lab 01/08/25 13:57 Received CBC Stat Lab 01/08/25 13:56 Completed CMP [Comprehensive Metabolic Panel] Stat Lab 01/08/25 13:56 Completed CRP [C-Reactive Protein] Stat Lab 01/08/25 13:56 Completed Sed Rate (ESR) Stat Lab 01/08/25 13:56 Completed Ampicillin/Sulbac Inj [Unasyn Inj] 3 gm Med 01/08/25 13:46 Discontinued Sodium Chloride 0.9% (Pop) [NS 0.9% mini bag] 100 ml IV X1 Reevaluation(s) Reevaluation #1: At the time of reassessment, the patient remains alert and oriented ?3 with GCS 15. Vitals are normal, pain is controlled, and the patient is tolerating oral intake without nausea or vomiting. The patient is agreeable to discharge and verbalizes understanding of the diagnosis, studies, treatment plan, medications (including side effects/precautions), and strict ER return precautions as discussed in the ED. All concerns were addressed, and the patient is comfortable with the plan. Vital Signs Vital signs: Vital Signs Temperature 98.2 F 01/08/25 13:12 Pulse Rate 74 01/08/25 13:12 Respiratory Rate 18 01/08/25 13:12 Blood Pressure 133/79 H 01/08/25 13:12 Pulse Oximetry (%) 96 01/08/25 13:12 Oxygen Delivery Method Room Air 01/08/25 13:12 Wound / Laceration MDM Narrative MDM Narrative:: MDM This patient?s soft tissue infection appears appropriate for outpatient management with close follow-up by a clinician within 24?48 hours. There are no signs of systemic toxicity, and a serious, rapidly progressive infection is unlikely based on presentation and exam. Doubt necrotizing fasciitis given lack of tenderness beyond erythema or crepitus, and doubt lymphangitis given lack of streaking. No focal fluid collection is appreciated to suggest need for incision and drainage. Antibiotics have been initiated, and response will be assessed at follow-up. Additionally I consulted social sciences professor and they are going to arrange for wound care follow-up in the clinic as his wounds have been nonhealing and are now infected. The patient has been instructed on signs of acute progression and to return immediately if symptoms worsen or change. Patient data External records reviewed:: [facility] previous records Clinical information provided by:: patient Social determinants that could affect healthcare access:: none Patient has the following chronic illnesses:: As noted How is presenting disease/condition affected by chronic disease/condition?: exacerbated by Evaluation data The following diagnostics were reviewed and interpreted by me:: lab results and radiology exam(s) Lab and/or radiology exams considered but not ordered:: Additional Labs and radiology considered, but not ordered as they were not clinically indicated at this time. Interpretation Summary: Lab work notable for a normal white blood cell count at 9.3, hematocrit minimally low at 40.4 however hemoglobin within normal limits at 13.8, immature granulocytes at 3 and monocyte numbers elevated at 3 as well, glucose minimally elevated 140 however remainder of CBC and CMP without severe metabolic or electrolyte abnormality and ESR and CRP are both within normal limits at 10 and less than 0.5 Ultrasound without DVT and x-ray without cortical destruction Medications / Prescriptions Medications or Prescriptions considered but not ordered:: I considered prescription management (both outpatient prescriptions AND drug treatment in the ER) and decided that this was necessary and was prescribed as charted. Medication administrations:: Medication Administration History Discontinued Medications Ampicillin Sodium/Sulbactam (Sodium 3 gm/ Sodium Chloride) 100 mls @ 200 mls/hr IV X1 ONE Stop: 01/08/25 13:47 Last Infusion: 01/08/25 15:34 Dose: Infused Documented By: Admin: 01/08/25 14:46 Dose: 200 mls/hr Documented By: SAE As noted Consultations Consultation(s) initiated? (list below): No Diagnosis Wound Differential Diagnosis: abscess, abrasion and other Most likely diagnosis given after review of the tests above:: Infected partial-thickness wounds Admission Indicated Admission indicated?: not indicated Admission Request Was there a request for admission?: No Disposition Plan Disposition Plan: Discharge Discharge Attestation Discharge Attestation: The patient and all family members were given an opportunity to ask questions and understood the discharge instructions. Discharge instructions specifically effects, indications for sooner follow up or return to the emergency department, and the expected course of current diagnosis. Patient condition: Stable Discharge Plan Plan Patient Disposition: HOME (Self Care) Patient condition on transfer: Stable Prescriptions/Referrals Prescriptions/Med Rec: New amoxicillin-pot clavulanate 875-125 mg tablet 1 tab PO Q12H Qty: 20 0RF No Action albuterol sulfate 2.5 mg /3 mL (0.083 %) solution for nebulization 2.5 mg inhalation Q4H PRN (Reason: shortness of breath or wheezing) Qty: 90 0RF albuterol sulfate [ProAir HFA] 90 mcg/actuation HFA aerosol inhaler 2 puff inhalation QID PRN (Reason: shortness of breath or wheezing) Qty: 8.5 0RF lisinopril 20 mg Tablet 20 mg PO QDAY amlodipine 10 mg Tablet 10 mg PO QDAY montelukast 10 mg Tablet 10 mg PO QDAY loratadine 10 mg Tablet 10 mg PO QDAY prednisone 50 mg tablet 50 mg PO QDAY Qty: 5 0RF albuterol sulfate 90 mcg/actuation HFA aerosol inhaler 2 puff inhalation QID PRN (Reason: shortness of breath or wheezing) Qty: 8.5 0RF azithromycin 250 mg tablet See Rx Instructions .ROUTE .COMPLEX Qty: 6 0RF Rx Instructions: For 250 mg dose pack: take 500 mg today (day 1), then 250 mg for 4 days (days 2-5) prednisone 20 mg tablet 20 mg PO QDAY Qty: 5 0RF ibuprofen 600 mg tablet 600 mg PO Q8H PRN (Reason: pain) Qty: 30 0RF albuterol sulfate 90 mcg/actuation aerosol powdr breath activated 2 inh inhalation Q6H PRN (Reason: shortness of breath or wheezing) Qty: 1 0RF benzonatate 100 mg capsule 100 mg PO BID PRN (Reason: cough) Qty: 14 0RF Problem List Clinical Impression: Infected wound Patient/Caregiver Discharge Instructions Education Materials: Wound Infection Tx Additional Instructions: Follow up with your primary medical doctor within 48 hours. Return to the Emergency Room immediately for any new, worsening, continuing symptoms or any concerns at all. Return to the Emergency Room within 48 hours if you are unable to follow up with your primary medical doctor within 48 hours. Print Language: Greenlandic Stand Alone Forms: Asiya Award Info., Patient Portal Info Letter PA/HEEL SEAT FITTER MACHINE Supervising Physician PA/HEEL SEAT FITTER MACHINE Supervising Physician: Dr. Taveras
[2025-01-08 13:12] VITALS: BP 133/79; PULSE 74; RESP 18; TEMP 36.8; O2SAT 96
--- NOTE | 2025-01-08 13:43 | XR_ITS ---
Examination: Tibia-Fibula, left, 2 views Technique: Tibia-fibula AP lateral 2 views Date and time of exam: January 08, 2025, 1443 hours INDICATIONS: Dog bite to the lower leg 1 month ago with pain FINDINGS: Air density in the soft tissue lateral lower leg No opaque foreign body No fracture or cortical bone destruction IMPRESSION: No fracture or cortical bone destruction
--- NOTE | 2025-01-08 13:43 | XR_ITS ---
Examination: Duplex scan of the lower extremity, unilateral left Date and time of exam: January 08, 2025, 1418 hours INDICATIONS: Left leg swelling and pain beginning 1 month ago post dogbite to the leg Technique: Duplex scan of the extremity veins using B-mode/grayscale imaging and Doppler spectral analysis and color flow Attention is directed to internal echogenicity, compression and augmentation involving these veins, color flow assessment, spectral analysis Findings: Major deep venous structures in the extremity demonstrate normal course and caliber. There is no evidence of deep vein thrombosis. Normal color flow and spectral analysis Impression: Negative for DVT..
[2025-01-08 14:10] LABS: Basophils # (Auto) 0.0 Thou/mm3 (0.0-0.2); Basophils % (Auto) 0 % (0-2.5); Eosinophils # (Auto) 0.1 Thou/mm3 (0.0-0.5); Eosinophils % (Auto) 1 % (0-10); Hematocrit 40.4 % (41.0-53.0); Hemoglobin 13.8 g/dL (13.5-16.0); Immature Granulocytes Auto 0.03 Thou/mm3 (0.00-0.00); Lymphocytes # (Auto) 2.0 Thou/mm3 (1.0-4.8); Lymphocytes % (Auto) 22 % (10-50); Mean Corpuscular HGB Conc 34.2 g/dl (31.0-37.0); Mean Corpuscular Hemoglobin 32.4 pg (25.0-35.0); Mean Corpuscular Volume 95 fL (80-100); Monocytes # (Auto) 0.9 Thou/mm3 (0.0-0.8); Monocytes % (Auto) 9 % (0-12); Neutrophils # (Auto) 6.3 Thou/mm3 (1.8-7.7); Neutrophils % (Auto) 67 % (37-80); Nucleated Red Blood Cell # 0.00 Thou/mm3 (0.00-0.00); Nucleated Red Blood Cell % 0 /100 WBC (0); Platelet Count 273 Thou/mm3 (140-440); RDW Standard Deviation 47.0 fL (35.1-43.9); Red Blood Count 4.26 Miln/mm3 (4.50-5.90); White Blood Count 9.3 Thou/mm3 (3.8-10.6)
[2025-01-08 14:30] LABS: Sed Rate (ESR) 10 mm/hr (0-20)
[2025-01-08 14:34] LABS: Alanine Aminotransferase 34 U/L (10-49); Albumin, Serum 4.3 gm/dL (3.4-4.8); Albumin/Globulin Ratio 2.9 (1.2-2.2); Alkaline Phosphatase 61 U/L (46-116); Anion Gap 9 (7-16); Aspartate Amino Transferase 32 U/L (0-34); BUN/Creatinine Ratio 16 Ratio (12-20); Bilirubin,Total 0.4 mg/dL (0.3-1.2); Blood Urea Nitrogen 13 mg/dL (9-23); C-Reactive Protein < 0.5 mg/dL (0.0-0.9); Calcium 8.8 mg/dL (8.3-10.6); Calcium (Corrected) 8.8 mg/dL (8.5-10.1); Carbon Dioxide 24.1 mMol/L (20.0-31.0); Chloride 107 mMol/L (98-107); Creatinine (Component) 0.8 mg/dL (0.6-1.3); Globulin 1.5 gm/dL (2.3-3.5); Glucose 140 mg/dL (74-106); Osmolality,Calculated 281 (275-295); Potassium 3.7 mMol/L (3.4-5.1); Sodium 140 mMol/L (136-145); Total Protein 5.8 gm/dL (5.7-8.2); eGFR > 60 See Note
[2025-01-08] MEDS: AMPICILLIN/SULBAC INJ 3 GM in SODIUM CHLORIDE 0.9% (POP) 100 ML IV (14:46)
--- NOTE | 2025-01-08 14:57 | PC.CC ---
Earnestine SCHMITZ received a consultation from SALINAS Portillo for a referral to the Wound Clinic. Earnestine SCHMITZ introduced self, role, and reason for visit to patient. Patient appeared already and oriented to self, location, and situation. NADIR confirmed information on patient's demographics and informed patient that a referral was going to be sent out to the wound center. NADIR faxed referral to the wound center with needed additional information.
[2025-01-08 15:35] VITALS: BP 122/84; PULSE 78
--- NOTE | 2025-01-12 02:40 | PD.EDADDENDU ---
Emergency Room Addendum Addendum Narrative: Wound culture gre out staph epidermidis resistant to augmentin, will rx ciprofloxacin
--- NOTE | 2025-01-12 09:17 | PC.NURSE ---
PROVIDER ORDERED NEW ANTIBIOTIC AND TRANSMITTED TO PHARMACY. ATTEMPTED TO CALL PT BUT NOT ANSWER. CALLED PERSON TO NOTIFY ON FACE SHEET, JENNIFER ARCHER AND ASKED HER TO NOTIFY THE PT OF NEW PRESCRIPTION AT HIS PHARMACY. SHE SAID SHE WOULD LET HIM KNOW.
== END 2025-01-08 15:35 | disposition home or self-care (01) ==
PROVIDERS: Physician Assistant; Emergency Provider Family Medicine
DX: S81.852A Open bite, left lower leg, initial encounter (principal); E78.00 Pure hypercholesterolemia, unspecified; I10 Essential (primary) hypertension; J45.909 Unspecified asthma, uncomplicated; W54.0XXA Bitten by dog, initial encounter
CPT/HCPCS: 36415; 73590; 80053; 85025; 85652; 86140; 87070; 87077; 87186; 87205; 93971; 96365; 99283; J0295; J3490

== ENCOUNTER → 2025-01-13 | Outpatient (CLI) | payer MEDICARE, MEDICAID, SELFPAY | END | disposition home or self-care (01) | PROVIDERS: Visit Provider Student in an Organized Health Care Education/Training Program | DX: I87.312 Chronic venous hypertension (idiopathic) with ulcer of left lower extremity (principal); S81.832A Puncture wound without foreign body, left lower leg, initial encounter; W54.0XXA Bitten by dog, initial encounter; L97.822 Non-pressure chronic ulcer of other part of left lower leg with fat layer exposed; J45.909 Unspecified asthma, uncomplicated | CPT/HCPCS: 97597; 36415; 83036; 99213; A9270; G0463 ==

== ENCOUNTER → 2025-01-13 | Outpatient (CLI) | payer MEDICARE, MEDICAID, SELFPAY ==
[2025-01-13 16:36] LABS: Glucose Estimated Average 126 mg/dL (80-131); Hemoglobin A1C 6.0 % Hgb (4.8-6.0)
== END | disposition home or self-care (01) ==
PROVIDERS: PCP Family Medicine; Referring Provider Student in an Organized Health Care Education/Training Program; Visit Provider Student in an Organized Health Care Education/Training Program
DX: I87.312 Chronic venous hypertension (idiopathic) with ulcer of left lower extremity (principal); L97.222 Non-pressure chronic ulcer of left calf with fat layer exposed
CPT/HCPCS: 36415; 83036

== ENCOUNTER → 2025-01-15 | Outpatient (CLI) | payer MEDICARE, MEDICAID, SELFPAY | END | disposition home or self-care (01) | LOC: SWHD 15:10 | PROVIDERS: PCP Physician Assistant; Referring Provider Physician Assistant; Visit Provider Surgery | DX: I87.312 Chronic venous hypertension (idiopathic) with ulcer of left lower extremity (principal); S81.832A Puncture wound without foreign body, left lower leg, initial encounter; X58.XXXA Exposure to other specified factors, initial encounter; W54.0XXA Bitten by dog, initial encounter; L97.822 Non-pressure chronic ulcer of other part of left lower leg with fat layer exposed; I10 Essential (primary) hypertension; R73.03 Prediabetes; J45.909 Unspecified asthma, uncomplicated | CPT/HCPCS: 29581 ==

== ENCOUNTER → 2025-01-20 | Outpatient (CLI) | payer MEDICARE, MEDICAID, SELFPAY | END | disposition home or self-care (01) | LOC: SWHD 14:08 | PROVIDERS: Visit Provider Student in an Organized Health Care Education/Training Program | DX: I87.312 Chronic venous hypertension (idiopathic) with ulcer of left lower extremity (principal); S81.832A Puncture wound without foreign body, left lower leg, initial encounter; W54.0XXA Bitten by dog, initial encounter; L97.822 Non-pressure chronic ulcer of other part of left lower leg with fat layer exposed; I10 Essential (primary) hypertension; R73.03 Prediabetes; J45.909 Unspecified asthma, uncomplicated | CPT/HCPCS: 29581 ==

== ENCOUNTER → 2025-01-27 | Outpatient (CLI) | payer MEDICARE, MEDICAID, SELFPAY | END | disposition home or self-care (01) | LOC: SWHD 14:09 | PROVIDERS: PCP Physician Assistant; Referring Provider Physician Assistant; Visit Provider Student in an Organized Health Care Education/Training Program | DX: I87.312 Chronic venous hypertension (idiopathic) with ulcer of left lower extremity (principal); S81.832A Puncture wound without foreign body, left lower leg, initial encounter; W54.0XXA Bitten by dog, initial encounter; L97.822 Non-pressure chronic ulcer of other part of left lower leg with fat layer exposed; I10 Essential (primary) hypertension; R73.03 Prediabetes; J45.909 Unspecified asthma, uncomplicated | CPT/HCPCS: 29581 ==

== ENCOUNTER → 2025-02-03 | Outpatient (CLI) | payer MEDICARE, MEDICAID, SELFPAY | END | disposition home or self-care (01) | LOC: SWHD 14:48 | PROVIDERS: PCP Physician Assistant; Referring Provider Physician Assistant; Visit Provider Student in an Organized Health Care Education/Training Program | DX: I87.312 Chronic venous hypertension (idiopathic) with ulcer of left lower extremity (principal); S81.832A Puncture wound without foreign body, left lower leg, initial encounter; W54.0XXA Bitten by dog, initial encounter; L97.822 Non-pressure chronic ulcer of other part of left lower leg with fat layer exposed; I10 Essential (primary) hypertension; R73.03 Prediabetes; J45.909 Unspecified asthma, uncomplicated | CPT/HCPCS: 99212; A9270; G0463 ==